=== PATIENT | female | born 1995 | race Caucasian/White ===

== ENCOUNTER → 2020-05-21 11:30 | Outpatient (CLI) | payer OTHER, SELFPAY ==
[2020-05-21 12:39] LABS: Basophils % 0.6 % (0.1-2.0); Eosinophils # 0.1 K/mm3 (0.0-0.4); Eosinophils % 1.4 % (0.1-12.0); Hemoglobin 13.6 g/dL (12.2-16.2); Lymphocytes # 1.6 K/mm3 (0.7-4.5); Lymphocytes % 26.1 % (10-50); Mean Corpuscular Hemoglobin 28.7 pg (27.0-31.2); Mean Corpuscular Volume 92.7 fl (81-99); Monocytes # 0.4 K/mm3 (0.1-1.0); Monocytes % 7.1 % (1.7-9.3); Neutrophils % 64.9 % (37.0-80.0); Platelet Count 266 K/mm3 (142-424); Red Blood Count 4.74 M/mm3 (4.20-5.40); Red Cell Distribution Width 13.8 % (11.5-17.5); White Blood Count 6.2 K/mm3 (4.8-10.8)
[2020-05-21 13:25] LABS: Strep Scrn Group A (Rapid) Negative (Negative)
== END ==
PROVIDERS: PCP Nurse Practitioner; Visit Provider Nurse Practitioner
DX: J02.9 Acute pharyngitis, unspecified (principal)
CPT/HCPCS: 36415; 85025; 87430

== ENCOUNTER → 2022-12-13 09:19 | Outpatient (CLI) | payer BC, SELFPAY ==
[2022-12-13 18:43] LABS: Basophils # 0.1 K/mm3 (0-0.2); Basophils % 0.6 % (0.1-2.0); Eosinophils # 0.1 K/mm3 (0.0-0.4); Eosinophils % 1.5 % (0.1-12.0); Hematocrit 40.1 % (37.0-47.0); Hemoglobin 13.6 g/dL (12.2-16.2); Lymphocytes # 1.9 K/mm3 (0.7-4.5); Lymphocytes % 20.3 % (10-50); Mean Corpuscular HGB Conc 33.9 g/dL (31.8-35.4); Mean Corpuscular Hemoglobin 30.2 pg (27.0-31.2); Mean Platelet Volume 8.4 fl (7.4-10.4); Monocytes # 0.5 K/mm3 (0.1-1.0); Monocytes % 5.6 % (1.7-9.3); Neutrophils # 6.8 K/mm3 (1.8-7.8); Platelet Count 342 K/mm3 (142-424); Red Blood Count 4.51 M/mm3 (4.20-5.40); Red Cell Distribution Width 14.1 % (11.5-17.5); White Blood Count 9.4 K/mm3 (4.8-10.8)
[2022-12-13 18:51] LABS: Monoscreen (Rapid) Negative (Negative)
[2022-12-15 13:08] LABS: Antistreptolysin O Ab 174.6 IU/mL (0.0-200.0)
== END ==
LOC: LAB.DROPOF 12-14 06:30
PROVIDERS: PCP Nurse Practitioner; Visit Provider Nurse Practitioner
DX: J06.9 Acute upper respiratory infection, unspecified (principal); R59.0 Localized enlarged lymph nodes
CPT/HCPCS: 85025; 86060; 86318

== ENCOUNTER → 2022-12-26 19:41 | Outpatient (CLI) | payer BC, SELFPAY | PROVIDERS: PCP Nurse Practitioner; Visit Provider Nurse Practitioner | DX: R59.0 Localized enlarged lymph nodes (principal); J06.9 Acute upper respiratory infection, unspecified ==

== ENCOUNTER → 2023-01-05 16:04 | Outpatient (CLI) | payer BC, SELFPAY ==
--- NOTE | 2023-01-05 16:04 | US_ITS ---
FINAL REPORT TECHNIQUE: Ultrasound imaging of the neck soft tissues was obtained. CLINICAL HISTORY: anterior cervical LAD FINDINGS: There is a 2.7 cm lymph node in the right neck consistent with adenopathy which is nonspecific, favor reactive or neoplastic. IMPRESSION: 2.7 cm lymph node in the right neck consistent with adenopathy, favor reactive or neoplastic. Recommend follow-up exam if symptoms persist. Reviewed, Interpreted and Dictated by Kenney Tolbert III, MD Transcribed by Amy Morfin Authenticated and [facility]
== END ==
LOC: RAD 16:04
PROVIDERS: PCP Nurse Practitioner; Visit Provider Nurse Practitioner
DX: R59.0 Localized enlarged lymph nodes (principal)
CPT/HCPCS: 76536